=== PATIENT | male | born 1995 | race Caucasian/White ===

== ENCOUNTER 2020-05-26 19:54 | Emergency (ER) | payer MEDICAID ==
[~2020-05-26] VITALS: Ht 177.8 cm; Wt 82.0 kg
[2020-05-26] MEDS ORDERED: DIAZEPAM 5 MG TABLET PO ONE (21:45)
[2020-05-26 22:20] VITALS: BP 139/91
== END 2020-05-26 23:23 | disposition home or self-care (01) ==
LOC: ER 19:54
DX: F41.9 Anxiety disorder, unspecified (principal); R00.2 Palpitations; Z59.0 Homelessness
CPT/HCPCS: 93005; 99283

== ENCOUNTER 2020-05-27 07:59 | Emergency (ER) | payer MEDICAID ==
[~2020-05-27] VITALS: Ht 182.9 cm; Wt 100.0 kg
[2020-05-27 08:13] VITALS: BP 158/98
== END 2020-05-27 10:35 | disposition home or self-care (01) ==
LOC: ER 07:59
DX: T43.621A Poisoning by amphetamines, accidental (unintentional), initial encounter (principal); R00.2 Palpitations; F15.188 Other stimulant abuse with other stimulant-induced disorder; F15.182 Other stimulant abuse with stimulant-induced sleep disorder; Y92.89 Other specified places as the place of occurrence of the external cause; F11.10 Opioid abuse, uncomplicated
CPT/HCPCS: 93005; 99283

== ENCOUNTER 2020-05-28 14:57 | Emergency (ER) | payer MEDICAID | END 2020-05-28 16:54 | disposition left against medical advice (07) | LOC: ER 14:57 | DX: Z53.21 Procedure and treatment not carried out due to patient leaving prior to being seen by health care provider (principal) ==

== ENCOUNTER 2020-05-29 | Emergency (ER) | payer MEDICAID ==
[~2020-05-29] VITALS: Ht 185.4 cm; Wt 100.0 kg
[2020-05-29] MEDS ORDERED: LORAZEPAM 2MG/ML CPJ IV ONE (00:30)
[2020-05-29] MEDS ORDERED: SODIUM CHLORIDE 0.9% 1,000 ML IV ONE (00:30)
[2020-05-29 00:42] LABS: BASOPHILS % 0.8 % (0.0-2.0); EOSINOPHILS % 1.8 % (0.0-5.0); LYMPHOCYTES % 27.9 % (20.0-50.0); MEAN CORPUSCULAR HEMOGLOBIN 31.6 pg (28.0-32.0); MEAN CORPUSCULAR VOLUME 89.3 fL (80.0-94.0); MEAN PLATELET VOLUME 9.6 fl (7.4-10.4); MONOCYTES % 8.9 % (2.0-8.0); NEUTROPHILS % 60.6 % (40.0-76.0); PLATELET 257 x1000/uL (130-400); RED BLOOD CELL COUNT 5.37 mill/uL (4.7-6.1); RED CELL DISTRIBUTION WIDTH 12.3 % (11.6-14.6)
[2020-05-29 00:47] LABS: CHLORIDE 106 mEq/L (98-107)
[2020-05-29 02:03] LABS: *AMPHETAMINES SCREEN URINE PRESUMTIVE POSITIVE (NEGATIVE); *BARBITURATES SCREEN URINE NEGATIVE (NEGATIVE); *BENZODIAZEPINES SCREEN URINE NEGATIVE (NEGATIVE); *COCAINE SCREEN URINE NEGATIVE (NEGATIVE); CANNABINOID URINE SCREEN NEGATIVE (NEGATIVE); METHADONE URINE SCREEN NEGATIVE (NEGATIVE); OPIATES URINE SCREEN NEGATIVE (NEGATIVE); PHENCYCLIDINE URINE SCREEN NEGATIVE (NEGATIVE)
[2020-05-29] MEDS ORDERED: POTASSIUM CHLORIDE 20MEQ TABLET SR PO ONE (02:15)
[2020-05-29 03:15] VITALS: BP 127/81
== END 2020-05-29 03:33 | disposition home or self-care (01) ==
LOC: ER 00:04
DX: T43.621A Poisoning by amphetamines, accidental (unintentional), initial encounter (principal); R00.2 Palpitations; E87.6 Hypokalemia; Y92.018 Other place in single-family (private) house as the place of occurrence of the external cause
CPT/HCPCS: 36415; 71045; 80053; 80305; 85025; 96361; 96374; 99285; J2060; J7030; Z7610